=== PATIENT | male | born 1990 | race African-American/Black ===

== ENCOUNTER 2025-06-04 16:02 | Outpatient (AMB) | payer OTHER, SELFPAY ==
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
[2025-06-04 16:09] VITALS: BP 142/85; PULSE 79; RESP 16; TEMP 37; O2SAT 98; BMI 32.5
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
== END 2025-06-04 16:47 | disposition home or self-care (01) ==
LOC: HO.HMCFMS 16:03
PROVIDERS: Visit Provider Student in an Organized Health Care Education/Training Program
DX: Q74.2 Other congenital malformations of lower limb(s), including pelvic girdle (principal); R03.0 Elevated blood-pressure reading, without diagnosis of hypertension; E66.811 Obesity, class 1; Z68.32 Body mass index [BMI] 32.0-32.9, adult; G47.33 Obstructive sleep apnea (adult) (pediatric)

== ENCOUNTER → 2025-06-04 16:02 | Outpatient (BNVA) | payer OTHER, SELFPAY | PROVIDERS: Visit Provider Student in an Organized Health Care Education/Training Program | DX: Z76.89 Persons encountering health services in other specified circumstances (principal); G47.33 Obstructive sleep apnea (adult) (pediatric); R03.0 Elevated blood-pressure reading, without diagnosis of hypertension; E66.811 Obesity, class 1; Z68.32 Body mass index [BMI] 32.0-32.9, adult; Q74.2 Other congenital malformations of lower limb(s), including pelvic girdle; Z71.9 Counseling, unspecified | CPT/HCPCS: 99202 ==

== ENCOUNTER 2025-06-11 14:15 | Outpatient (REF) | payer OTHER, SELFPAY ==
--- NOTE | ~2025-06-11 | XR_ITS ---
EXAMINATION: XR TIBIA FIBULA 2 VIEWS LEFT HISTORY: Q74.2 - Other congenital malformations of lower limb(s), including pelvis... COMPARISON: There are no prior studies available for comparison. FINDINGS: AP and lateral views of the left tibia and fibula are submitted. Osseous mineralization is normal. There is no fracture or dislocation. The visualized knee and ankle joint spaces are preserved. The soft tissues are unremarkable. XR/XR tibia fibula LT 2V IMPRESSION: Unremarkable examination of the left tibia and fibula. Electronically signed by: Awais Lama MD 06/11/2025 03:01 PM EDT
[2025-06-11 14:38] LABS: MANUAL DIFF FLAG NO
[2025-06-11 14:49] LABS: Appearance Urine Clear; Glucose Urine UA Negative (Negative); PH 6.5 (5.0-9.0); Specific Gravity - Urine 1.020 (1.005-1.025)
[2025-06-11 14:49] LABS: Hematocrit 49.7 % (42.0-52.0); Hemoglobin 17.4 g/dl (14.0-18.0); Imm Gran Abs Auto 0.01 X10*3/uL (0.00-0.03); Imm Gran Pct Auto 0.2 % (0.0-0.4); Lymphocytes Absolute Auto 2.0 X10*3/uL (1.2-4.9); Mean Corpuscular HGB Conc 35.0 g/dl (31.0-36.0); Mean Corpuscular Hemoglobin 30.4 pg (27.0-33.0); Mean Corpuscular Volume 86.7 fL (80.0-98.0); NRBC Abs Auto 0.000 X10*3/uL (0.0-0.012); NRBC Pct Auto 0.0 /100WBC (0.0-0.2); Platelet Count 260 X10*3/uL (160-400); Red Blood Count 5.73 X10*6/uL (4.60-5.80); White Blood Count 5.1 X10*3/uL (4.8-10.8)
[2025-06-11 15:17] LABS: Alanine Aminotransferase 65 U/L (0-40); Albumin Level 5.1 g/dL (3.5-5.0); Alkaline Phosphatase 68 U/L (39-117); Anion Gap 11 (12-20); Aspartate Amino Transferase 99 U/L (5-37); Blood Urea Nitrogen 15 mg/dL (9-16); Calcium 9.8 mg/dL (8.4-10.2); Carbon Dioxide 29 mmol/L (22-29); Chloride 104 mmol/L (96-108); Cholesterol 283 mg/dL (<200); Estimated Glomerular Filt Rate > 60; HDL Cholesterol 39 mg/dL (>40); Potassium 3.9 mmol/L (3.3-5.1); Sodium 140 mmol/L (135-145); Total Protein 8.4 g/dL (6.5-8.0); Triglycerides 300 mg/dL (<150)
[2025-06-11 15:35] LABS: Microalbum/Creatinine Ratio Ur 4.6 ug/mg cr (<30)
[2025-06-11 15:50] LABS: Folate 6.9 ng/mL (> or = 4.0); Vitamin B12 550 pg/mL (200-900)
[2025-06-12 04:33] LABS: HBS Num1 7.38 mIU/mL (0-7.99); HBsAGNum1 0.32 S/CO (0.00-0.99); HIV Num 1 0.06 S/CO (0.00-0.99); Hepatitis B Surface Antigen Negative (Negative); ~HepC Num1 0.13 S/CO (0.00-0.79); ~Hepatitis B Surface Antibody NONREACTIVE (Nonreactive); ~Hepatitis C Antibody Nonreactive (Nonreactive)
[2025-06-17 15:33] LABS: VITAMIN D (1,25 OH) D3 108 pg/mL; Vit D (1,25-Dihydroxy) Total 108 pg/mL (18-72); Vitamin D (1,25 OH) D2 <8 pg/mL
== END 2025-06-11 14:16 | disposition home or self-care (01) ==
LOC: HO.XRAY 14:15
PROVIDERS: PCP Student in an Organized Health Care Education/Training Program; Visit Provider Student in an Organized Health Care Education/Training Program
DX: Q74.2 Other congenital malformations of lower limb(s), including pelvic girdle (principal); Z76.89 Persons encountering health services in other specified circumstances; Z13.89 Encounter for screening for other disorder; Z11.4 Encounter for screening for human immunodeficiency virus [HIV]; Z01.84 Encounter for antibody response examination; Z11.59 Encounter for screening for other viral diseases
CPT/HCPCS: 36415; 73590; 80053; 80061; 81003; 82043; 82570; 82607; 82652; 82746; 83036; 84443; 85025; 86706; 86803; 87340; 87389

== ENCOUNTER → 2025-06-11 14:36 | Outpatient (BNV) | payer OTHER, SELFPAY | PROVIDERS: PCP Student in an Organized Health Care Education/Training Program; Visit Provider Radiology Diagnostic Radiology | DX: Q74.2 Other congenital malformations of lower limb(s), including pelvic girdle (principal) | CPT/HCPCS: 73590 ==

== ENCOUNTER 2025-06-30 08:51 | Outpatient (AMB) | payer OTHER, SELFPAY ==
[2025-06-30 08:56] VITALS: BP 140/95; PULSE 91; RESP 16; TEMP 36.6; O2SAT 96; BMI 32.3
--- NOTE | 2025-06-30 08:56 | MHC.PC.OV ---
Vital Signs 06/30/25 08:56 Height 5 ft 4.76 in Weight 192 lb 8 oz BMI 32.3 BP 140/95 H Blood Pressure Location Lt brachial Position Sitting Respiration 16 Pulse 91 Pulse Source Pulse Oximeter Temp 98 F Temp Source Oral Pulse Oximetry (%) 96 Oxygen Delivery Method Room Air Intake Visit Reasons: 1 mo f/u Process Control Specialist Required: No Accompanied by: Self / Same As Patient Allergies No Known Allergies Allergy (Verified 06/30/25 08:56) Medication List - Last Reconciled 06/30/25 by Bladimir Johnson MD blood pressure monitor As directed icosapent ethyl 2 grams (2 x 1 gram) PO BID Tobacco use date assessed: 06/30/25 Dental Screening Dental Screen Date: 06/30/25 Did you have a dental visit in the last 12 months?: Yes Did you have a dental problem in the last 6 months where you did not have access to dental care?: No Was dental information given to patient?: Patient has dentist HPI HPI Comments History of Present Illness Details History of Present Illness The patient is a 35-year-old male presenting with follow-up care and multiple health concerns including sleep apnea, tibial soft tissue injury, and hyperlipidemia. Sleep Apnea: The patient has been experiencing ineffective CPAP therapy. Although he is not experiencing any new symptoms, the current equipment is not improving his sleep quality, leading to persistent sleep apnea symptoms. Tibial Soft Tissue Injury: The patient was involved in a forklift accident leading to a tibial soft tissue injury in September. He experienced numbness that has subsided but now reports soreness and sporadic throbbing in the affected area. An initial tibial x-ray showed no abnormalities. There has been no orthopedic follow-up due to lack of insurance at the time, but he has been functional without any significant mobility impairment. Elevated Liver Enzymes: Current lab results show mildly elevated AST and ALT levels. The patient denies any symptoms of liver distress but acknowledges lifestyle factors contributing to hyperlipidemia. Hypertriglyceridemia: The patient's triglycerides are currently elevated at 300 mg/dL. The patient is aware of dietary indiscretions possibly contributing to his condition. Hypercholesterolemia: The patient's LDL cholesterol is 184 mg/dL, and total cholesterol is 283 mg/dL. He has not been compliant with previous dietary suggestions due to lack of dietary counseling. Surgical History: - Past splinting for tibial soft tissue injury due to accident-related precaution. Medications: - Men's One A Day Multivitamin - Vitamin D and K supplementation (patient was advised to hold off on Vitamin D due to elevated levels) Social History: - No exercise routine currently established but acknowledges need for cardiovascular activity. - Reports potential weight management issues and difficulty with current dietary habits contributing to elevated cholesterol and triglycerides. Family History: - Unknown familial health history due to adoption, but has noted that a brother and grandmother required dialysis; grandmother due to unknown cause related to this. Diagnostic Results: - Labs: Normal white blood cell, red blood cell, hemoglobin, hematocrit, and platelets. Mildly elevated eosinophils. - Chemistry: Sodium, potassium, and renal function within normal limits. Vitamin D 108 (cutoff 72). - Liver function tests: AST 99 U/L (cutoff 37), ALT 65 U/L (cutoff 40). - Lipid profile: Triglycerides 300 mg/dL (cutoff 150), cholesterol 283 mg/dL (cutoff 300), LDL 184 mg/dL (cutoff 100), HDL 39 mg/dL (cutoff 40). - Imaging: Tibial x-ray unremarkable. - Infectious Screens: Negative for Hepatitis B, Hepatitis C, and HIV. Past Medical History - Past diagnosed sleep apnea with ineffective CPAP treatment. - Previous injury requiring tibial splinting due to forklift incident. - Past elevated liver enzymes unexplored until now. Health Maintenance - Referral to sleep medicine for CPAP equipment review. - Lifestyle modifications and omega-3 supplementation advised for hypertriglyceridemia. - Dietary counseling with hospice registered nurse for hypercholesterolemia. - Blood pressure monitoring and plan for follow-up. [facility] Medical History (Updated 06/30/25 @ 18:54 by Bladimir Johnson MD) Hyperlipidemia Elevated blood pressure reading Loss of feeling or sensation Tibial anomaly Obstructive sleep apnea Family History Father No problems noted. Mother No problems noted. Social History Housing: House Alcohol intake: current Alcohol intake frequency: does not drink Patient Tobacco Use Status: Never used Tobacco service: No Current occupational status: employed Cognitive needs: No Hearing needs: No Vision needs: Yes (rx glasses) Questionnaire Thrive Questionnaire Date Thrive assessed: 06/04/25 I am a: Patient What is your living situation today?: I have a steady place to live Within the past 12 months, did the food you bought not last and you didn't have the money to get more?: Never true Within the past 12 months, did you worry whether your food would run out before you got money to buy more?: Never true Do you have trouble paying for medicines?: No Do you have trouble getting transportation to medical appointments?: No Do you have trouble paying your heating and electricity bill?: No Do you have trouble taking care of your child, family member or friend?: No Do you have trouble with day-to-day activities such as bathing, preparing meals, shopping, managing finances, etc.?: No Are you currently unemployed and looking for a job?: No Are you interested in more education?: No Please select the resources that you would like help with: None Currently or been in a relationship where the following occur: No concerns reported THRIVE Score: 0 AUDIT C Alcohol Use Questionnaire (AUDIT-C) 3. How often do you have six or more drinks on one occasion?: Never Total Score: 0 DAPHNE-7 AMB Questionnaire DAPHNE-7 Date DAPHNE - 7 assessed: 06/04/25 Source: Developed by Drs. Awais Kerr, Krystyna Rosado, Marcial Santiago and colleagues, with an educational julisa from [employer]. Review of Systems Narrative Review of Systems - Musculoskeletal: Reports soreness at previous injury site, denies numbness. - Neurological: Denies numbness or altered sensation outside local tenderness in leg. - Cardiovascular: Denies chest pain, reports slight elevation in blood pressure. - Digestive: Reports ability to burp easily, denies heartburn or pain. - Hepatic: Denies jaundice or hepatic distress symptoms. 10-point ROS reviewed and negative except as noted in HPI Physical exam (Primary Care) Vital Signs: Last Vital Signs Temp 98 F 06/30/25 08:56 Pulse 91 06/30/25 08:56 Resp 16 06/30/25 08:56 BP 140/95 H 06/30/25 08:56 Pulse Ox 96 06/30/25 08:56 Oxygen Delivery Method Room Air 06/30/25 08:56 BMI result Body Mass Index 32.3 Tobacco/Smoking Status: Tobacco use Status Tobacco use date assessed 06/30/25 06/30/25 09:01 Patient Tobacco Use Status Never used Tobacco 06/30/25 09:01 Thrive Assessment: Date of Thrive Assessment Date Thrive assessed 06/04/25 06/30/25 09:01 Currently or been in a relationship where the following occur: No concerns reported Narrative Physical Exam General: Well-appearing, in no acute distress. Vital signs: Blood pressure elevated at 140/95. HEENT: Normocephalic, atraumatic. PERRLA, EOMI. Conjunctiva clear, sclera anicteric. Oropharynx clear, mucous membranes moist. TMs intact bilaterally. Neck: Supple, no lymphadenopathy, no thyromegaly, no JVD or carotid bruits. Cardiovascular: RRR, normal S1/S2, no murmurs, rubs, or gallops. Peripheral pulses 2+ and symmetric. No edema. Respiratory: Lungs clear to auscultation bilaterally, no wheezes, rales, or rhonchi. Normal effort. Abdomen: Soft, non-tender, non-distended. Normoactive bowel sounds. No hepatosplenomegaly, no masses. MSK: Full range of motion, no joint swelling or deformity. Normal gait. Patient reports soreness and throbbing in a localized area following an accident. Skin: Warm, dry, intact. No rashes, lesions, or pallor. Neuro: Alert and oriented x3. Cranial nerves II-XII intact. Strength 5/5 throughout. Sensation intact. Reflexes 2+ symmetric. Normal coordination and gait. Patient reports memory issues and previous numbness that has resolved. Psych: Appropriate mood and affect. Normal judgment and insight. Coding Level of Care Code Est Pt Level 4 (26065) Diagnoses Elevated blood pressure reading R03.0 Obstructive sleep apnea G47.33 Loss of feeling or sensation R20.0 Hyperlipidemia E78.5 Elevated liver enzymes R74.8 Hypertriglyceridemia E78.1 Hypercholesterolemia E78.00 Assessment & Plan Assessment & Plan (1) Elevated blood pressure reading: Code(s): R03.0 - Elevated blood-pressure reading, without diagnosis of hypertension Category: Medical (2) Obstructive sleep apnea: Code(s): G47.33 - Obstructive sleep apnea (adult) (pediatric) Category: Medical (3) Loss of feeling or sensation: Code(s): R20.0 - Anesthesia of skin Category: Medical (4) Hyperlipidemia: Code(s): E78.5 - Hyperlipidemia, unspecified Category: Medical (5) Elevated liver enzymes: Code(s): R74.8 - Abnormal levels of other serum enzymes (6) Hypertriglyceridemia: Code(s): E78.1 - Pure hyperglyceridemia (7) Hypercholesterolemia: Code(s): E78.00 - Pure hypercholesterolemia, unspecified Plan Consent Patient was informed and verbally consented to the use of an ambient scribe for clinic note documentation during this visit. Plan 1. Sleep Apnea - Referral to sleep medicine for CPAP equipment evaluation and potential update due to treatment ineffectiveness. - Discussed risk of untreated sleep apnea and importance of follow-up. 2. Tibial Abnormality - Tibial x-ray performed, results unremarkable, no further action required at this time. 3. Elevated Liver Enzymes - Ordered liver ultrasound to rule out fatty liver disease or other hepatobiliary pathology. - Advised on lifestyle modifications including dietary improvements for overall health benefit. 4. Hypertriglyceridemia - Recommended lifestyle modifications including increased cardiovascular activity and dietary adjustments. - Initiated omega-3 supplementation and encouraged adherence to discussed nutritional improvements. 5. Hypercholesterolemia - Implemented referral to a hospice registered nurse for specialized dietary planning. - Discussed need for potential pharmacological interventions if lifestyle modification goals are unmet in a six-month frame. - Initiated consistent monitoring of cholesterol levels. 6. Tibial Soft Tissue Injury - Advised follow up with orthopedics if condition persists or worsens now that the patient has insurance coverage. - Encouraged to monitor symptoms and report any new changes or increasing difficulty. 7. Elevated Blood Pressure - Provided patient with guidance for home blood pressure monitoring. - Reinforced importance of regular monitoring and follow-up to establish control. - Provided blood pressure monitoring log for patient to track readings. 8. Loss of sensation Patient complains of localized loss of sensation of the area of injury denies any loss of function is able to move his toes dorsiflex plantar flex normal range of motion of the ankle neurology further evaluation Discussion Notes In this visit, I reviewed the patients ineffective CPAP therapy and facilitated a referral to determine suitable equipment updates. I appraised the previous tibial x-ray and ascertained no current need for orthopedic intervention unless symptoms exacerbate. The patients elevated liver enzyme results were deliberated, leading to scheduling a liver ultrasound to exclude underlying pathology, such as non-alcoholic fatty liver disease. The necessity for lifestyle modification and omega-3 supplementation for hypertriglyceridemia and hypercholesterolemia was expounded upon, and a folding machine feeder referral was actioned. Additionally, elevated blood pressure was discussed thoroughly, and the essentiality of monitoring at home with a correctly advised method was elaborated. Neurological referrals were discussed and provided for further evaluation and management consider EMG/ NCV Patient Instructions - Follow up with sleep medicine for CPAP equipment review. - Begin lifestyle changes focusing on heart health and take omega-3 supplements as advised. - Adhere to dietary recommendations and consult with the hospice registered nurse. - Proceed with home blood pressure monitoring as instructed and record the results. - Go for a liver ultrasound as scheduled by the office. - Seek further evaluation if increased pain or functional limitations arise from previous injury. Medical Decision Making My clinical objective in managing this patient revolves around addressing multifactorial health components ranging from ineffective sleep apnea therapy to metabolic disturbances. Recognizing the persistent ineffectiveness of his CPAP apparatus, a referral to sleep medicine was prompted to avert potential cardiovascular sequelae. The clinically benign tibial imaging justified conservative management, but orthopedic input remains attainable should soreness persist beyond self-resolution. Leveraging the patient's willingness to alter lifestyle and dietary practices provides a springboard for tackling his hyperlipidemia and hypertension, with pharmacological measures preparatory should intended health objectives fall short. Monitoring his blood pressure at home stands to clarify any underlying hypertension not fully discerned during transient clinical observations, fortifying preventive strategies against premature organ dysfunction. Total time spent caring for the patient today was 30 minutes. This includes time spent before the visit reviewing the chart, time spent documenting, and time spent reviewing laboratory results, diagnostic imaging, medications, performing a medically necessary evaluation, counseling on diagnoses, care coordination, ordering appropriate tests, ordering appropriate medications. Orders: Orders US abdomen limited Today E78.5 - Hyperlipidemia, unspecified, R74.8 - Abnormal levels of other serum enzymes Referrals Neurology Referral R20.0 - Anesthesia of skin Nurse Navigator Referral E78.5 - Hyperlipidemia, unspecified Sleep Medicine Referral G47.33 - Obstructive sleep apnea (adult) (pediatric) Medications: New blood pressure monitor As directed 1 ea 0RF R03.0 - Elevated blood-pressure reading, without diagnosis of hypertension icosapent ethyl 2 grams (2 x 1 gram) PO BID 360 caps 0RF E78.00 - Pure hypercholesterolemia, unspecified, E78.1 - Pure hyperglyceridemia
== END 2025-06-30 09:49 | disposition home or self-care (01) ==
LOC: HO.HMCFMS 08:52
PROVIDERS: PCP Student in an Organized Health Care Education/Training Program; Visit Provider Student in an Organized Health Care Education/Training Program
DX: R03.0 Elevated blood-pressure reading, without diagnosis of hypertension (principal); G47.33 Obstructive sleep apnea (adult) (pediatric); R20.0 Anesthesia of skin; E78.5 Hyperlipidemia, unspecified; R74.8 Abnormal levels of other serum enzymes; E78.1 Pure hyperglyceridemia; E78.00 Pure hypercholesterolemia, unspecified

== ENCOUNTER → 2025-06-30 08:51 | Outpatient (BNVA) | payer OTHER, SELFPAY | PROVIDERS: Visit Provider Student in an Organized Health Care Education/Training Program | DX: R03.0 Elevated blood-pressure reading, without diagnosis of hypertension (principal); G47.33 Obstructive sleep apnea (adult) (pediatric); R20.0 Anesthesia of skin; R74.8 Abnormal levels of other serum enzymes; E78.1 Pure hyperglyceridemia; E78.00 Pure hypercholesterolemia, unspecified | CPT/HCPCS: 99212 ==

== ENCOUNTER 2025-07-23 12:02 | Outpatient (AMB) | payer OTHER, SELFPAY ==
--- NOTE | 2025-07-23 12:03 | MHC.AMNUTRGE ---
Intake Visit Reasons: Initial Nutrition Assessment Allergies No Known Allergies Allergy (Verified 06/30/25 08:56) Nutrition Presentation Details: Here for BP and cholesterol management. Can eat fast depending on his schedule but believes he chews well. Does not currently avoid food related to reflux as he does not know which ones can trigger it. Avoid spicy food mainly because he does not like it and it can trigger diarrhea. Reflux is worse at night when he does not wear CPAP (does not use it often at all). Needs to get new tubing-appointment scheduled. Plans to use it when the tubing gets fixed. 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 Does not like to bring food from home do to space limitations and storage issues when on the road for days a time. Tends to be gone Saturday through but can be 2 weeks at a time, minimum 5-6 days. Can be indecisive when choosing what to eat so does not really have a routine. Only gets about 3 hours of sleep a day. Would rather jump right in than take baby steps-choosing an agressive approach at first. Is more motivated this way. Reason for consult: other (BP & CHOLESTEROL) GI symptoms: reports dyspepsia (RELATED TO BUCK, GERD (sometimes eats right before bed)) Food allergies/aversions: No Smoking assessment: Reviewed (occasional cigar) Alcohol assessment: Reviewed (very rare) Other problems/issues: walks a lot, drives trucks, lifts for work but nothing intentional Diet Assmnt Details: believes ti have gained a few pounds over the last few years since job travel changed (about 20# over the last 4-5 years). Dietary counseling: other Dietary cultural/religion factors: fasting practices (occasional religion fasting (first 3 days a month)) Who buys your food: self Who prepares/cooks your food: self Meal frequency: regular: dinner (break at 4 pm) and snacks (8-9pm, then bed) and irregular: breakfast (rarely eats, wakes around 6-7 am and goes straight to work) and lunch (Maybe at noon (deliveries start around then), pasta, jerk meat of some kind) Lifestyle Emotional Eating: Reports comfort/relaxation (hen tired on the road or will chew gum) Eating out: 4 or more times/week Exercise: No Food frequency: Fruit: never, Vegetables: never (don't care for them but doesn't mind to start incorporated), Grains/pasta/breads/cereal (carbs): several times weekly, Meats/poultry/fish (protein): daily, Desserts/sweets: never, Water: daily, Soda: several times weekly (for the caffeine), Juice: several times weekly, Coffee: occasionally (occasional-iced coffee with sugar), Sports/energy drinks: occasionally (occasional gatorade) and Alcohol: occasionally BS Monitoring Most Recent Diabetes Results: Microalb/Creat Ratio, (<30) 4.6 ug/mg cr 06/11/25 Cholesterol, (<200) 283 mg/dL H 06/11/25 HDL Cholesterol, (>40) 39 mg/dL L 06/11/25 Triglycerides, (<150) 300 mg/dL H 06/11/25 Creatinine, (0.5-1.4) 1.02 mg/dL 06/11/25 BUN, (9-16) 15 mg/dL 06/11/25 Sodium, (135-145) 140 mmol/L 06/11/25 Potassium, (3.3-5.1) 3.9 mmol/L 06/11/25 Chloride, (96-108) 104 mmol/L 06/11/25 Carbon Dioxide, (22-29) 29 mmol/L 06/11/25 Calcium, (8.4-10.2) 9.8 mg/dL 06/11/25 AST, (5-37) 99 U/L H 06/11/25 ALT, (0-40) 65 U/L H 06/11/25 Total Protein, (6.5-8.0) 8.4 g/dL H 06/11/25 Albumin, (3.5-5.0) 5.1 g/dL H 06/11/25 Assessment Nutrition recommendation: RD nutrition education Focused findings Nutrition-focused findings: abd distension/bloating (unpredicatable with certain foods) HMJ-Fxacoir-Eo.Jeor Equation Calculated Activity Level: Sedentary Diagnosis Nutrition problem #1: food nutri know defi and undesirable food choices As related to (etiology) #1: lack of nutrit education, unsure how to apply info and physical inactivity As evidenced by (sign/symptom) #1: abnormal serum lipids, food recall, knowledge deficit of diet and weight gain Monitoring/Goals Nutrition problem monitoring: total energy intake, level of knowledge/skill, total PRO intake, total CHO intake and oral fluids Nutrition goal/outcome: list 3 high fiber foods Outcome progress: verbalized understanding Learning/Education Readiness to learn: excellent Stages of change: action Educational materials provided: Yes (snack and meal planning guides, cholesterol nutrition info) Date of nutrition screenin07/23/25 Date of nutritional follow-up: 08/25/25 Follow up Follow-up frequency: monthly Time Outcome assessment time: 60 minutes [facility] Medical History (Updated 06/30/25 @ 18:54 by Bladimir Johnson MD) Hyperlipidemia Elevated blood pressure reading Loss of feeling or sensation Tibial anomaly Obstructive sleep apnea Family History Father No problems noted. Mother No problems noted. Social History Housing: House Alcohol intake: current Alcohol intake frequency: does not drink Patient Tobacco Use Status: Never used Tobacco service: No Current occupational status: employed Cognitive needs: No Hearing needs: No Vision needs: Yes (rx glasses) Review of Systems GI Reports dyspepsia (RELATED TO BUCK, GERD (sometimes eats right before bed)) Telehealth Telehealth Telehealth Platform: Other (please specify) (zoom) Location of provider rendering services: practice address Location of patient: address on file Patient Identification confirmed using: Name, : Yes Telehealth method: video (zoom) Patient verbally consented to treatment: Yes Patient informed of any privacy concerns related to visit: Yes Minutes spent on Phone/Video with Pt.: 60 Assessment & Plan Assessment & Plan (1) Hyperlipidemia: Code(s): E78.5 - Hyperlipidemia, unspecified Category: Medical Plan: 1. starting moving body more intentionally 2. add fiber to daily meal routine (beans, whole grains, veggies, fruit), increase water intake and increase fiber slowly over a few weeks 3. improve sleep hygiene 4. avoid added sugar especially via beverages 5. chew well, eat slow Plan 1. starting moving body more intentionally 2. add fiber to daily meal routine (beans, whole grains, veggies, fruit), increase water intake and increase fiber slowly over a few weeks 3. improve sleep hygiene 4. avoid added sugar especially via beverages 5. chew well, eat slow Coding Level of Care Code Nutr Indiv Intake (18469) Diagnoses Hyperlipidemia E78.5
== END 2025-07-23 12:51 | disposition home or self-care (01) ==
LOC: HO.HMCCN 12:02
PROVIDERS: PCP Student in an Organized Health Care Education/Training Program; Visit Provider Dietitian, Registered
DX: E78.5 Hyperlipidemia, unspecified (principal)

== ENCOUNTER → 2025-07-23 12:02 | Outpatient (BNVA) | payer OTHER, SELFPAY | PROVIDERS: PCP Student in an Organized Health Care Education/Training Program; Visit Provider Dietitian, Registered | DX: E78.5 Hyperlipidemia, unspecified (principal); Z71.3 Dietary counseling and surveillance | CPT/HCPCS: 97802 ==